=== PATIENT | male | born 1960 | race Asian ===

== ENCOUNTER → 2016-12-25 | Outpatient (CLI) | payer OTHER | END | disposition home or self-care (01) | LOC: MI 12-18 14:30 | PROC: BR39ZZZ Magnetic Resonance Imaging (MRI) of Lumbar Spine (ICD-10-PCS; principal; 2016-12-25) | DX: M54.6 Pain in thoracic spine (principal) ==

== ENCOUNTER → 2017-02-22 | Outpatient (CLI) | payer OTHER | END | disposition home or self-care (01) | LOC: CT 08:54 | PROC: BW24ZZZ Computerized Tomography (CT Scan) of Chest and Abdomen (ICD-10-PCS; principal; 2017-02-22) | DX: R06.02 Shortness of breath (principal); R63.4 Abnormal weight loss | CPT/HCPCS: Q9967 ==

== ENCOUNTER 2017-03-18 10:14 | Day surgery (SDC) | payer OTHER ==
[~2017-03-18] VITALS: Ht 160 cm; Wt 64.4 kg
[2017-03-18 11:04] VITALS: BP 126/83
[2017-03-18 12:12] LABS: BASOPHIL % 0.3 % (0-2); PLATELET COUNT 290 x10^3mcL (130-400)
[2017-03-18 12:18] LABS: RED CELL DISTRIBUTION WIDTH 15.7 % (11.5-14.5)
[2017-03-18 15:30] VITALS: BP 147/81
--- NOTE | 2017-03-18 15:30 | NUR ---
RECEIVED PATIENT POST PROCEDURE. AWAKE , ALERT AND ORIENTED. RESP. REG. AND EVEN WITH OUT DISTRESS NOTED. NO C/O OR DISTRESS NOTED.
[2017-03-18 15:45] VITALS: BP 115/77
[2017-03-18 16:00] VITALS: BP 135/82
--- NOTE | 2017-03-18 16:11 | NUR ---
RESTING QUIETLY WITH HOB UP THIRTY DEGREES. ALERT AND ORIENTED X3. RESP. REG. AND EVEN WITH OUT DISTRESS NOTED. NO SOB NOTED. DENIES CHEST PAIN AT THIS TIME. ATE A LATE LUNCH WITH OUT C/O, TOLERATED WELL. NO C/O OR DISTRESS NOTED.
[2017-03-18 16:25] VITALS: BP 126/71
[2017-03-18 16:50] VITALS: BP 141/81
--- NOTE | 2017-03-18 16:50 | NUR ---
DISCHARGED A/O VIA W/C AFTER RECEIVING INSTRUCTIONS WITH VERBAL RESPONSE OF UNDERSTANDING. DR. SANZ IN TO SEE PATIENT AND PROIR TO DISCHARGE. OKAY FOR DISCHARGE AT THIS TIME PER DR. SANZ. NO C/O OR DISTRESS NOTED. RESP. REG. AND EVEN WITH OPUT DISTRESS. DENIES SOB OR CHEST PAIN.
== END 2017-03-18 16:50 | disposition home or self-care (01) ==
LOC: DS 10:14
PROVIDERS: Internal Medicine Pulmonary Disease
PROC: 0BBC3ZX Excision of Right Upper Lung Lobe, Percutaneous Approach, Diagnostic (ICD-10-PCS; principal; 2017-03-18)
DX: R91.8 Other nonspecific abnormal finding of lung field (principal)
CPT/HCPCS: 49180; J2001

== ENCOUNTER → 2017-07-01 | Outpatient (CLI) | payer OTHER | END | disposition home or self-care (01) | LOC: CT 09:28 | PROC: BW24ZZZ Computerized Tomography (CT Scan) of Chest and Abdomen (ICD-10-PCS; principal; 2017-07-01) | DX: R91.1 Solitary pulmonary nodule (principal); M54.9 Dorsalgia, unspecified; N52.9 Male erectile dysfunction, unspecified; R76.11 Nonspecific reaction to tuberculin skin test without active tuberculosis ==

== ENCOUNTER → 2018-02-03 | Outpatient (CLI) | payer OTHER ==
[2018-02-03 15:58] LABS: BASOPHIL % 0.6 % (0-2); PLATELET COUNT 270 x10^3mcL (130-400); RED CELL DISTRIBUTION WIDTH 14.2 % (11.5-14.5)
[2018-02-03 16:00] LABS: CALCIUM 9.3 mg/dL (8.5-10.1); CREATININE SERUM 0.9 mg/dL (0.7-1.3); GFR1 > 60 mL/min; GLUCOSE SERUM 102 mg/dL (74-106)
[2018-02-03 16:06] LABS: CHLORIDE SERUM 105 mmol/L (98-107); POTASSIUM SERUM 3.4 mmol/L (3.5-5.1); SODIUM SERUM 140 mmol/L (136-145)
== END | disposition home or self-care (01) ==
LOC: LB 15:28
PROVIDERS: Internal Medicine Pulmonary Disease
DX: R91.1 Solitary pulmonary nodule (principal); R76.11 Nonspecific reaction to tuberculin skin test without active tuberculosis

== ENCOUNTER → 2018-02-05 | Outpatient (CLI) | payer OTHER | END | disposition home or self-care (01) | LOC: CT 15:18 | PROC: BW241ZZ Computerized Tomography (CT Scan) of Chest and Abdomen using Low Osmolar Contrast (ICD-10-PCS; principal; 2018-02-05) | DX: R91.1 Solitary pulmonary nodule (principal); M54.9 Dorsalgia, unspecified; N52.9 Male erectile dysfunction, unspecified; R76.11 Nonspecific reaction to tuberculin skin test without active tuberculosis | CPT/HCPCS: Q9967 ==

== ENCOUNTER → 2018-04-24 | Outpatient (CLI) | payer OTHER | END | disposition home or self-care (01) | LOC: MI 16:34 | PROC: BR39ZZZ Magnetic Resonance Imaging (MRI) of Lumbar Spine (ICD-10-PCS; principal; 2018-04-24) | DX: G57.13 Meralgia paresthetica, bilateral lower limbs (principal); R20.2 Paresthesia of skin; M54.16 Radiculopathy, lumbar region ==

== ENCOUNTER → 2019-03-30 | Outpatient (CLI) | payer OTHER | END | disposition home or self-care (01) | LOC: CT 15:00 | PROC: BW24ZZZ Computerized Tomography (CT Scan) of Chest and Abdomen (ICD-10-PCS; principal; 2019-03-30) | DX: R91.1 Solitary pulmonary nodule (principal); M54.9 Dorsalgia, unspecified; N52.9 Male erectile dysfunction, unspecified; R76.11 Nonspecific reaction to tuberculin skin test without active tuberculosis ==